=== PATIENT | male | born 1975 | race Two or more races ===

== ENCOUNTER 2022-03-30 00:50 | Emergency (ER) | payer OTHER ==
[~2022-03-30] VITALS: Ht 177.8 cm; Wt 59.0 kg
[2022-03-30] MEDS ORDERED: TDAP [DIPH/PERTUSSIS/TET] 0.5 ML VIAL IM ONE ×2 (01:00→01:03)
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
--- NOTE | 2022-03-30 01:02 | NUR ---
[employer] AT BEDSIDE
[2022-03-30] MEDS ORDERED: IOHEXOL-300 100 ML VIAL IV ONE (01:28)
[2022-03-30] MEDS ORDERED: IV NS 0.9% 250 ML IV ONE (01:28)
[2022-03-30] MEDS ORDERED: CT SWABBABLE VALVE TRANS SET 1 EA INFUS.SET MC ONE (01:28)
[2022-03-30 01:40] LABS: BASOPHILS % (AUTO) 0.3 % (0.0-2.0); EOSINOPHILS % (AUTO) 0.3 % (0.0-6.0); HEMATOCRIT 41 % (39-51); HEMOGLOBIN 13.6 g/dL (13.5-17.5); LYMPHOCYTES # (AUTO) 0.8 K/uL (0.8-4.8); LYMPHOCYTES % (AUTO) 10.1 % (20.0-44.0); MEAN CORPUSCULAR HGB CONC 33 g/dl (31.0-36.0); MEAN CORPUSCULAR VOLUME 86 fL (80-96); MONOCYTES # (AUTO) 0.5 K/uL (0.1-1.30); NEUTROPHILS # (AUTO) 6.7 K/uL (1.8-8.9); NEUTROPHILS % (AUTO) 83.3 % (43.0-81.0); PLATELET COUNT (AUTO) 368 K/uL (150-450); RED BLOOD CELL COUNT(AUTO) 4.78 MIL/uL (4.5-6.0); WHITE BLOOD COUNT (AUTO) 8.1 K/uL (4.3-11.0)
--- NOTE | 2022-03-30 01:47 | NUR ---
BLOOD COLLECTED AND SENT TO LAB
--- NOTE | 2022-03-30 01:47 | NUR ---
IV LINE ESTABLISHED [id number]
[2022-03-30 01:58] LABS: CALCIUM, SERUM 9.8 mg/dL (8.5-10.1); CARBON DIOXIDE 26 mmol/L (21-32); CHLORIDE 102 mmol/L (98-107); CREATININE 1.5 mg/dL (0.6-1.3); GLUCOSE 124 mg/dL (74-106); POTASSIUM 4.1 mmol/L (3.5-5.1); SODIUM SERUM 143 mmol/L (136-145); UREA NITROGEN, BLOOD 19 mg/dL (7-18)
[2022-03-30 02:03] LABS: ALANINE AMINOTRANSFERASE 24 U/L (12-78); ALBUMIN 4.1 g/dL (3.4-5.0); ALCOHOL, BLOOD < 3 mg/dL (0-0); ALKALINE PHOSPHATASE 97 U/L (46-116); ASPARTATE AMINOTRANSFERASE 38 U/L (15-37); BILIRUBIN,DIRECT 0.3 mg/dL (0.0-0.2); BILIRUBIN,TOTAL 1.2 mg/dL (0.2-1.0); TOTAL PROTEIN, SERUM 8.1 g/dL (6.4-8.2)
--- NOTE | 2022-03-30 07:15 | NUR ---
Received pt from [facility] Respond when called name
--- NOTE | 2022-03-30 08:41 | NUR ---
Awake, alert able to go BRP slowly noticed to be limping BUT pt states "its ok,i'm ok" Re-evaluated by Dr Isabel. Pt declines further XRay studies and opting for discharge "want to go". Breakfast given and tolerated well. Ate 90%. Cane given for mobility Patient discharged to home in stable condition. Written and verbal after care instructions given. Patient verbalizes understanding of instruction. Taxi Voucher given to address on file/pt.
[2022-03-30 08:48] VITALS: BP 110/97
== END 2022-03-30 08:49 | disposition home or self-care (01) ==
LOC: ER 00:52
DX: S00.81XA Abrasion of other part of head, initial encounter (principal); R51.9 Headache, unspecified; M54.2 Cervicalgia; Y08.89XA Assault by other specified means, initial encounter; Y93.89 Activity, other specified; Y92.830 Public park as the place of occurrence of the external cause; Y99.8 Other external cause status
CPT/HCPCS: 99285; 90471; 90715; 72125; 71260; 70450; 74177; 85025; 80048; 80076; 36415; 80320; J7050; Q9967; G0480